=== PATIENT | female | born 1985 | race Caucasian/White ===

== ENCOUNTER 2020-10-19 15:07 | Outpatient (REF) | payer OTHER, SELFPAY ==
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
== END 2020-10-19 15:08 | disposition home or self-care (01) ==
LOC: HO.MRI 15:07
PROVIDERS: PCP Nurse Practitioner Family; Visit Provider Anesthesiology
DX: M47.817 Spondylosis without myelopathy or radiculopathy, lumbosacral region (principal)
CPT/HCPCS: 72148

== ENCOUNTER → 2020-10-23 08:05 | Outpatient (BNVA) | payer OTHER, SELFPAY | PROVIDERS: PCP Nurse Practitioner Family; Visit Provider Anesthesiology | DX: Z76.89 Persons encountering health services in other specified circumstances (principal) ==

== ENCOUNTER 2020-10-30 06:49 | Outpatient (REF) | payer OTHER, SELFPAY ==
[2020-10-30 07:09] LABS: COVID-19 Test Negative (Negative); IDNOW Serial# 55D5AD1C
== END 2020-10-30 06:50 | disposition home or self-care (01) ==
LOC: HO.EMPCOV 06:49
PROVIDERS: Visit Provider Internal Medicine
DX: Z20.828 Contact with and (suspected) exposure to other viral communicable diseases (principal)
CPT/HCPCS: 87635; C9803

== ENCOUNTER 2020-11-10 08:52 | Outpatient (REF) | payer OTHER, SELFPAY ==
--- NOTE | 2020-11-10 09:04 | XR_ITS ---
EXAMINATION: XR THORACIC SPINE CLINICAL INFORMATION: Back pain. COMPARISON: None TECHNIQUE: 3 views of the thoracic spine were obtained. FINDINGS: There is normal thoracic kyphosis. The vertebral heights, alignment and disc heights are normal. No visible acute fracture, dislocation or lytic process seen. The paravertebral soft tissues are normal. XR/XR thoracic spine 3V IMPRESSION: Unremarkable dorsal spine exam.
== END 2020-11-10 08:53 | disposition home or self-care (01) ==
LOC: HO.XRAY 08:52
PROVIDERS: PCP Nurse Practitioner Family; Visit Provider Physician Assistant
DX: M54.6 Pain in thoracic spine (principal)
CPT/HCPCS: 72072

== ENCOUNTER 2024-10-08 14:07 | Emergency (ER) | payer OTHER, SELFPAY ==
--- NOTE | ~2024-10-08 | CT_ITS ---
EXAMINATION: CT ABDOMEN AND PELVIS WITHOUT CONTRAST CLINICAL INFORMATION: Right flank pain. COMPARISON: CT abdomen/pelvis dated 10/08/2010. TECHNIQUE: Multidetector volumetric imaging was performed from the superior aspect of the liver through the pubic symphysis. Sagittal and coronal reformatted images were obtained on the technologist's workstation. This CT examination was performed using dose optimization techniques as appropriate, variously including the following: *Automated exposure control *Adjustment of mA and/or kV according to patient size (this includes techniques or standardized protocols for targeted exams where dose is matched to indication/reason for exam; i.e. extremities or head) *Use of iterative reconstruction technique DLP: 560 mGy-cm FINDINGS: LUNG BASES: The visualized lung bases are unremarkable. LIVER, GALLBLADDER, AND BILIARY TREE: The liver is normal in size, shape, and attenuation. No focal hepatic lesion or biliary ductal dilatation is present. Status post cholecystectomy. PANCREAS: Unremarkable. SPLEEN: Unremarkable. ADRENAL GLANDS: Unremarkable. KIDNEYS AND URETERS: Right ureterovesicular junction stone measuring up to 0.3 x 0.2 cm. Mild right-sided hydroureteronephrosis with minimal periureteral stranding. Additional posterior right midpole renal stone measuring 0.5 x 0.3 cm and located approximately 7.5 cm from the posterior axillary line. Additional 0.2 cm right upper pole renal stone. No left-sided renal or ureteral stone. No left-sided hydronephrosis or hydroureter. Normal renal size and contour. BLADDER: Nondistended and unremarkable. GASTROINTESTINAL TRACT: Small, sliding hiatal hernia. No small or large bowel obstruction. No bowel wall thickening or inflammatory change. Unremarkable appendix. PERITONEAL CAVITY: No intra-abdominal free air or free fluid. No intra-abdominal mass or organized fluid collection/abscess formation. ABDOMINAL WALL: No significant hernia is appreciated. LYMPH NODES: No lymphadenopathy. VASCULAR: Unremarkable. PELVIC VISCERA: The uterus and adnexa are unremarkable. OSSEOUS STRUCTURES: No acute osseous abnormality. Posterior orthopedic plate with stabilization screws across the sacroiliac joints and posterior pelvis. No evidence of hardware complication. Chronic posterior matter changes within the sacrum as well as within the pubic rami. CT/CT abdomen pelvis wo IV con IMPRESSION: 1. Right ureterovesicular junction stone measuring up to 0.3 cm. Mild right-sided hydroureteronephrosis with minimal periureteral stranding. Additional right-sided renal stones measuring up to 0.5 cm. No left-sided renal or ureteral stone. No left-sided hydronephrosis or hydroureter. 2. Small, sliding hiatal hernia. No small or large bowel obstruction. Unremarkable appendix. 3. No intra-abdominal mass, lymphadenopathy, or ascites. Fleischner guidelines were followed. Electronically signed by: Checo Guthrie MD 10/08/2024 05:06 PM TABBY YUAN
[2024-10-08 14:08] VITALS: BP 148/79; PULSE 79; RESP 18; TEMP 36.5; O2SAT 100; BMI 29.5
--- NOTE | 2024-10-08 14:10 | ED.GENADULT ---
HPI - General Adult General Chief complaint: Abdominal Pain Stated complaint: Abd pain back pain Time Seen by Provider: 10/08/24 19:01 Source: patient, RN notes reviewed and old records reviewed Mode of arrival: ambulatory Limitations: no limitations History of Present Illness ED Provider: Geovanny [facility] narrative: 39-year-old female presents for evaluation of right flank pain. Patient reports that her pain started suddenly while she was at work just prior to arrival. She has been in the ER waiting room for about 5 hours. She is currently pain-free. She denies any fevers, chills. She has no pain with urination or difficulty urinating She reports that at worst her pain was 8/10, stabbing in nature. She is currently at 0/10 pain Denies any history abdominal surgeries Related Data Previous Rx's ?Medication ?Instructions ?Recorded cyclobenzaprine 10 mg tablet 10 mg PO BEDTIME 30 days #30 tabs 11/01/21 cefuroxime axetil 500 mg tablet 500 mg PO Q12H #10 tabs 10/08/24 Allergies Allergy/AdvReac Type Severity Reaction Status Date / Time From DILAUDID Allergy Mild RASH Uncoded 10/08/24 14:11 Seafood Allergy Unknown UNKNOWN Uncoded 10/08/24 14:11 Review of Systems Constitutional: Constitutional: Denies body ache(s), Denies chills and Denies fever(s) Eyes: Eyes: Denies blurry vision ENT: Denies vertigo and Denies dizziness Cardiovascular: Cardiovascular: Denies chest pain and Denies dyspnea Respiratory: Respiratory: Denies cough and Denies dyspnea Gastrointestinal: Gastrointestinal: Reports abdominal pain, Denies nausea and Denies vomiting Genitourinary: Genitourinary: Denies dysuria Musculoskeletal: Musculoskeletal: Reports back pain Integumentary/Breasts: Skin/Breast: Denies rash Neurologic: Denies vertigo and Denies dizziness [facility] Past Medical History Medical History (Updated 10/08/24 @ 19:09 by Maco Small) Left shoulder pain History of pelvic fracture 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, lumbosacral region Social History Social History Advance Directives: No Advance Directives Information Provided: No Physical Exam ED Vital Signs: Vital Signs - 24 hr 10/08/24 14:08 10/08/24 14:48 Temperature 97.7 F 98.3 F Pulse Rate 79 77 Respiratory Rate 18 19 Blood Pressure 148/79 H 140/72 H Pulse Oximetry 100 100 Oxygen Delivery Method Room Air Room Air BMI result Body Mass Index 29.5 Const General: healthy appearing, comfortable, no acute distress, alert and awake Nutritional Appearance: well nourished Orientation/consciousness: patient oriented x3 HENMT Head: Yes normocephalic and Yes atraumatic Eyes Eyelids: Yes eyelids normal Conjunctivae: conjunctivae normal Sclerae: sclerae normal Corneas: corneas normal Pupils: Equal, round and reactive pupils present EOM: EOMs intact bilaterally Neck Neck: Yes full ROM Resp Effort & Inspection: normal respiratory effort, able to speak in complete sentences and not labored Cardio Rate: regular rate Rhythm: regular rhythm GI Inspection: No distended Palpation (GI): Soft to palpation, not firm, no guarding and not rigid Skin General skin exam: elasticity normal Neuro General: patient oriented x3 Cranial nerves: Yes Equal, round and reactive pupils present and Yes Bilaterally intact EOM present Cognition (Neuro): normal cognition Extrem Other: Moving all extremities well without any obvious deformities Course Course Course Narrative: This is an RME done by VANNESA Le: Additional HPI, ROS, PE not included below will be deferred to primary provider. 39-year-old female presents with sudden onset right-sided flank pain, patient very uncomfortable. Reports 10/10 pain. Pain is stabbing. Patient reports an episode of nausea and vomiting. No fevers, chills. Appearance: Alert.? Oriented X3.? No acute cardiopulmonary distress distress.? Patient appears very uncomfortable. Head: Normocephalic, atraumatic, no step-offs or deformities Neck: Normal inspection.? Neck supple.? CVS: Pulses normal.? Respiratory: No respiratory distress.? Abdomen: Soft and nontender.? Skin: ? Normal skin color. Extremities: 5/5 strength to bilateral upper and lower extremities Neuro: Oriented X 3.? No motor deficit.? No sensory deficit. Medications Administered Discontinued Medications Generic Name Dose Route Start Last Admin Trade Name Freq PRN Reason Stop Dose Admin Ketorolac Tromethamine 30 mg 10/08/24 14:10 10/08/24 19:07 Ketorolac Tromethamine 15 Mg/Ml Vial IM 10/08/24 14:11 Not Given ONCE ONE Medical Decision Making Medical Decision Making [facility] Narrative: 39-year-old female presents for evaluation of right flank pain. She had a workup ordered in triage that included labs, urinalysis and a CT scan. Her labs are unremarkable, urinalysis is mostly hematuria but with some bacteria. Her CT scan confirms a 3 mm UVJ stone on the right. However at the time my evaluation the patient is currently pain-free it is likely that she already pass this stone. She will be discharged. I will cover her with cefuroxime due to the obstructive uropathy and the pyuria. She is afebrile and well-appearing. Differential Diagnosis Differential Diagnoses: The differential diagnosis associated with the presentation includes UTI cystitis Obstructive uropathy Flank pain Lab Data [facility] Lab Attestation statement: I reviewed the patient's lab results. No leukocytosis or anemia. Normal platelet count. Renal function within normal limits. Electrolytes within normal limits. Urinalysis with positive bacteria and hematuria 10/08/24 14:36 10/08/24 14:36 Labs: Lab Results 10/08/24 10/08/24 Range/Units 14:36 14:45 WBC 8.0 (4.8-10.8) X10*3/uL RBC 4.09 L (4.20-5.50) X10*6/uL Hgb 12.6 (12.0-16.0) g/dl Hct 38.0 (37.0-47.0) % MCV 92.9 (80.0-98.0) fL MCH 30.8 (27.0-33.0) pg MCHC 33.2 (31.0-35.0) g/dl RDW 12.7 (11.0-16.0) % Plt Count 345 (160-400) X10*3/uL MPV 8.9 L (9.4-12.3) fL Immature Gran % (Auto) 0.4 (0.0-0.4) % Neut % (Auto) 69.9 (45-73) % Lymph % (Auto) 19.5 L (20-40) % [place] % (Auto) 7.1 (2-11) % Eos % (Auto) 2.1 (0-4) % Baso % (Auto) 1.0 (0-2) % Lymph # (Auto) 1.6 (1.2-4.9) X10*3/uL [place] # (Auto) 0.6 (0.1-1.2) X10*3/uL Eos # (Auto) 0.2 (0.0-0.4) X10*3/uL Baso # (Auto) 0.1 (0.0-0.2) X10*3/uL Abs Immat Gran (auto) 0.03 (0.00-0.03) X10*3/uL Absolute Neuts (auto) 5.6 (2.0-8.3) x10*3/uL Absolute Nucleated RBC 0.000 (0.0-0.012) X10*3/uL Nucleated RBC % (auto) 0.0 (0.0-0.2) /100WBC Sodium 139 (135-145) mmol/L Potassium 3.6 (3.3-5.1) mmol/L Chloride 107 (96-108) mmol/L Carbon Dioxide 24 (22-29) mmol/L Anion Gap 12 (12-20) BUN 13 (9-16) mg/dL Creatinine 0.91 (0.5-1.4) mg/dL Estim Creat Clear Calc 79.1 Estimated GFR > 60 Random Glucose 109 (60-115) mg/dL Calcium 9.0 (8.4-10.2) mg/dL Magnesium 2.0 (1.6-2.6) mg/dL Total Bilirubin 0.5 (0.0-1.0) mg/dL AST 17 (5-31) U/L ALT 14 (0-31) U/L Alkaline Phosphatase 78 (39-117) U/L Total Protein 7.4 (6.5-8.0) g/dL Albumin 3.9 (3.5-5.0) g/dL Lipase 46 (8-78) U/L Urine Color Dark Yellow Urine Appearance Cloudy Urine pH 5.5 (5.0-9.0) Ur Specific [place] >= 1.030 H (1.005-1.025) Urine Protein 30 (1+) H (Neg-Trace) mg/dL Urine Glucose (UA) Negative (Negative) mg/dL Urine Ketones 15 (Negative) mg/dL Urine Blood Large (3+) H (Negative) Urine Nitrite Negative (Negative) Ur Leukocyte Esterase Small (1+) H (Negative) Urine RBC >20 H (0-2) /HPF Urine WBC 6-10 H (0-5) /HPF Ur Squamous Epith Cells 6-10 (0-2) /HPF Urine Bacteria 3+ (None Seen) Hyaline Casts 0-2 (0-2) /LPF Discharge Plan Discharge Clinical Impression: Acute unilateral obstructive uropathy Patient Disposition: Home, Self-Care Instructions: Kidney Stones (ED) Additional Instructions: Your blood work was reassuring. Your urinalysis was mostly bloody likely from the kidney stone but there was some bacteria in the urine. Take the antibiotics twice daily for [address] scan showed a 3 mm kidney stone that was stuck just before your bladder. Drink lots of fluids. Follow-up with your primary doctor Return for new or worsening symptoms Prescriptions: New cefuroxime axetil 500 mg tablet 500 mg PO Q12H Qty: 10 0RF No Action cyclobenzaprine 10 mg tablet 10 mg PO BEDTIME 30 Days Qty: 30 4RF Stand Alone Forms: Work/School Release Interventions: ED Discharge Assessment Last Done: 10/08/24 19:15 Print Language: Tamazight
[2024-10-08 14:48] VITALS: BP 140/72; PULSE 77; RESP 19; TEMP 36.8; O2SAT 100
[2024-10-08 14:58] LABS: MANUAL DIFF FLAG NO
[2024-10-08 15:01] LABS: Basophils Absolute Auto 0.1 X10*3/uL (0.0-0.2); Eosinophils Absolute Auto 0.2 X10*3/uL (0.0-0.4); Eosinophils Percent Auto 2.1 % (0-4); Hemoglobin 12.6 g/dl (12.0-16.0); Imm Gran Abs Auto 0.03 X10*3/uL (0.00-0.03); Imm Gran Pct Auto 0.4 % (0.0-0.4); Lymphocytes Absolute Auto 1.6 X10*3/uL (1.2-4.9); Lymphocytes Percent Auto 19.5 % (20-40); Mean Corpuscular HGB Conc 33.2 g/dl (31.0-35.0); Mean Corpuscular Hemoglobin 30.8 pg (27.0-33.0); Mean Corpuscular Volume 92.9 fL (80.0-98.0); Mean Platelet Volume 8.9 fL (9.4-12.3); Monocytes Absolute Auto 0.6 X10*3/uL (0.1-1.2); Monocytes Percent Auto 7.1 % (2-11); Neutrophils Absolute Auto 5.6 x10*3/uL (2.0-8.3); Neutrophils Percent Auto 69.9 % (45-73); Platelet Count 345 X10*3/uL (160-400); Red Blood Count 4.09 X10*6/uL (4.20-5.50); Red Cell Distribution Width 12.7 % (11.0-16.0)
[2024-10-08 15:03] LABS: Appearance Urine Cloudy; Color Urine Dark Yellow; Glucose Urine UA Negative (Negative); Leukocyte Esterase Urine Small (1+) (Negative); Nitrite Urine Negative (Negative); PH 5.5 (5.0-9.0); Specific Gravity - Urine >= 1.030 (1.005-1.025); UMIC TRIGGER UACC YES; Urine Blood Large (3+) (Negative); Urine Ketones 15 mg/dL (Negative); Urine Protein 30 (1+) mg/dL (Neg-Trace)
[2024-10-08 15:06] LABS: Bacteria Urine 3+ (None Seen); Hyaline Casts Urine 0-2 /LPF (0-2); RBC Urine >20 /HPF (0-2); UACC Culture Trigger YES
[2024-10-08 15:22] LABS: Albumin Level 3.9 g/dL (3.5-5.0); Anion Gap 12 (12-20); Aspartate Amino Transferase 17 U/L (5-31); Bilirubin Total 0.5 mg/dL (0.0-1.0); Blood Urea Nitrogen 13 mg/dL (9-16); Carbon Dioxide 24 mmol/L (22-29); Chloride 107 mmol/L (96-108); Creatinine Clr Calc Pharmacy 79.1; Estimated Glomerular Filt Rate > 60; Glucose Random 109 mg/dL (60-115); Lipase 46 U/L (8-78); Potassium 3.6 mmol/L (3.3-5.1); Sodium 139 mmol/L (135-145); Total Protein 7.4 g/dL (6.5-8.0)
[2024-10-08 15:31] LABS: Alanine Aminotransferase 14 U/L (0-31); Alkaline Phosphatase 78 U/L (39-117)
[2024-10-08 19:15] VITALS: BP 140/72; PULSE 77; RESP 19; TEMP 36.8; O2SAT 100
== END 2024-10-08 19:17 | disposition home or self-care (01) ==
PROVIDERS: Physician Assistant; Emergency Provider Emergency Medicine; PCP Nurse Practitioner Family
DX: N13.2 Hydronephrosis with renal and ureteral calculous obstruction (principal); R10.9 Unspecified abdominal pain
CPT/HCPCS: 36415; 74176; 80053; 81001; 81003; 83690; 83735; 85025; 87086; 99283; 99284